=== PATIENT | female | born 1970 | race American Indian/Alaskan Native ===

== ENCOUNTER 2017-11-07 16:11 | Emergency (ER) | payer OTHER ==
[2017-11-07] MEDS ORDERED: CATAPRES ONE (19:31)
[2017-11-07] MEDS ORDERED: CATAPRES PO ONE (19:31)
[2017-11-07 19:32] VITALS: BP 170/99
--- NOTE | 2017-11-07 19:39 | Emergency Department Report ---
Chief Complaint: Upper Respiratory Infection Stated Complaint: FLU LIKE SYMPTOMS Time Seen by Provider: 11/07/17 18:44 - HPI History of Present Illness: Patient is a 47-year-old [place] female who has a past medical history of hypertension and diabetes who is presenting with "" I just don't feel right". Patient states that she's just been weak fatigued, denies shortness of breath cough fevers chills or body aches at this time. Patient states she's been off of her blood pressure medicine and her diabetes medication for some time. Patient states that she also should be taking iron pills she has a history of chronic anemia. She denies chest pain again no shortness of breath. She denies any heavy vaginal bleeding at this time or GI bleed at this time as well. - ROS Review of Systems: Review of systems negative except for the elements in the H&P - Exam Vital Signs: Vital Signs 11/07/17 11/07/17 16:22 19:32 Temperature 97.9 F Pulse Rate 89 Respiratory 18 Rate Blood Pressure 175/89 170/99 O2 Sat by Pulse 99 Oximetry Physical Exam: Focused physical exam patient general is in no acute distress HEENT is normal pupils equal and reactive to light was clear to auscultation chest S1-S2 no murmurs gallops or rubs abdomen soft nontender skin exam there is no rash skeletal no deformity neuro exam patient is able 3 and moving all extremities with no issue MSE screening note: Focused history and physical exam performed. Due to findings the following was ordered: ED Medical Decision Making - Medical Decision Making Patient's blood pressure was elevated she was given 0.2 of Catapres and her atenolol will be refilled. Patient's blood glucose was elevated as well but not a critical range. Her glipizide will be refilled also. Patient restarted on her iron pills and primary care follow-up has been offered. ED Disposition for MSE Clinical Impression: Hypertensive urgency, Hyperglycemia, Medical non-compliance Disposition: TO HOME OR SELFCARE Is pt being admited?: No Does the pt Need Aspirin: No Condition: Good Instructions: Chronic Hypertension (ED), Diabetic Hyperglycemia (ED) Prescriptions: Atenolol [Tenormin] 25 mg PO DAILY #30 tab Ferrous Sulfate 325 mg PO QDAY #30 tablet. glipiZIDE [Glipizide] 5 mg PO DAILY #30 tablet Referrals: JOSE DENNIS MD [Primary Care Provider] - 3-5 Days
== END 2017-11-07 20:25 | disposition home or self-care (01) ==
LOC: ED 16:11
DX: I10 Essential (primary) hypertension (principal); E11.65 Type 2 diabetes mellitus with hyperglycemia
CPT/HCPCS: 82962; 99283